=== PATIENT | female | born 1950 | race Caucasian/White ===

== ENCOUNTER 2016-11-12 07:25 | Day surgery (SDC) | payer BC, OTHER ==
[2016-11-09 13:24] VITALS: BMI 29.9
[2016-11-12] MEDS ORDERED: PROPOFOL 20 ML ONE ×2 (07:27)
[2016-11-12 09:53] VITALS: TEMP 97.8
[2016-11-12 10:22] VITALS: BP 108/73; PULSE 66
--- NOTE | 2016-11-13 12:46 | PATH ---
Surgical Pathology Report Patient Name: GINA HYLTON [facility]. Rec. #: [id number] /Age/Gender: 1950 (Age: 66) / F Account: [id number] Location: [facility] Taken: 11/12/2016 Received: 11/12/2016 Reported: 11/13/2016 Physicians: Doron Sosa M.D. Specimen(s) Received BX RECTUM Clinical History History of colon cancer Diarrhea Final Diagnosis RECTUM, POLYP, BIOPSY: FRAGMENTS OF HYPERPLASTIC POLYP. Electronically Signed Kayden Estrada M.D. Gross Description Received in formalin, labeled "rectum" are 2 sarabia, irregular portions of soft tissue averaging 0.2 cm in greatest dimension. The specimens are submitted in toto in one cassette. /11/12/201611/12/2016
== END 2016-11-12 10:15 | disposition home or self-care (01) ==
LOC: FASU-ENDO 07:25
PROVIDERS: ATTEND Internal Medicine Gastroenterology
PROC: 0DBP8ZX Excision of Rectum, Via Natural or Artificial Opening Endoscopic, Diagnostic (ICD-10-PCS; principal; 2016-11-12 09:00)
DX: Z85.048 Personal history of other malignant neoplasm of rectum, rectosigmoid junction, and anus (principal); Z98.0 Intestinal bypass and anastomosis status; K62.1 Rectal polyp
CPT/HCPCS: 88305-TC

== ENCOUNTER 2022-03-02 10:02 | Day surgery (SDC) | payer OTHER ==
[2022-02-25 11:33] VITALS: BMI 28.6
[2022-03-02 12:50] VITALS: BP 106/56; PULSE 68; RESP 20; TEMP 97.2
== END 2022-03-02 12:25 | disposition home or self-care (01) ==
LOC: FASU-ENDO 10:02
PROVIDERS: ATTEND Internal Medicine Gastroenterology
PROC: 0DJD8ZZ Inspection of Lower Intestinal Tract, Via Natural or Artificial Opening Endoscopic (ICD-10-PCS; principal; 2022-03-02 11:31)
DX: K57.30 Diverticulosis of large intestine without perforation or abscess without bleeding (principal); Z85.048 Personal history of other malignant neoplasm of rectum, rectosigmoid junction, and anus
CPT/HCPCS: 82962